=== PATIENT | female | born 1955 | race Caucasian/White ===

== ENCOUNTER 2021-11-13 08:53 | Inpatient (IN) | payer OTHER, MEDICARE, SELFPAY ==
[2021-11-13] VITALS (23 sets, daily range): BP systolic 79–195; BP diastolic 51–89; PULSE 63–97; RESP 11–30; TEMP 36.3–37.1; O2SAT 93–100; BMI 25.0
--- NOTE | 2021-11-13 | PATH_ITS ---
[facility] Accession Number: [id number] . 01 Material submitted: . small bowel - SMALL BOWEL . 01 Diagnosis: Small Bowel, Segmental Resection: Small bowel with acute ischemia-type changes including mucosal hemorrhage. Ischemia changes extend to one unoriented margin. Negative for granulomas, dysplasia, and malignancy. [facility] 11/15/2021 1127 Local . 01 Comment: The surgical impression of intussusception is noted. No lesions are identified on gross examination. . 01 Electronically signed: . Mary English MD, Pathologist NPI- [id number] . 01 Gross description: . Received in formalin and labeled with the patient's name and small bowel and consists of an unoriented, previously opened fragment of small bowel measuring 58.8 cm in length and 5.7 cm in circumference. The serosa is maddox, smooth, and unremarkable with mesentery extending up to 5.3 cm. A continuous segment of mucosa is red-brown, hemorrhagic, and edematous and extends from adjacent to one surgical margin and continues for approximately 27.3 cm. The remaining mucosa is maddox, velvety, folded, and mildly hemorrhagic. No lesions are identified. The margin adjacent to the hemorrhagic segment is inked blue, while the distant margin is inked black. A pink-maddox lymph node candidate is identified measuring 0.6 cm in greatest dimension. . Leather Craftsman sections are submitted as follows: A1: Leather Craftsman perpendicular segment of blue margin. A2: Remaining blue margin en face. A3: Black margin en face. A4: Leather Craftsman radial margin en face. A5-A8: Leather Craftsman full thickness sections. A9: Single lymph node candidate intact. A10-A11: Leather Craftsman adipose with possible lymph nodes. ([id number]) /[facility] 11/14/2021 1732 Local . 01 Pathologist provided ICD-10: K56.1 . 01 CPT . 685193 Specimen Comment: A courtesy copy of this report has been sent to [phone] Performed at: [address] [facility] [address], [place], [place] [id number] MD Bentley Viveros MD Phone: [phone]
--- NOTE | 2021-11-13 08:57 | DI.RAD.S_ITS ---
PROCEDURE: XR ACUTE ABDOMEN SERIES INDICATIONS: diarrhea, + n, epigastric pain TECHNIQUE: One view chest and two views of the abdomen were acquired. COMPARISON: None. FINDINGS: Surgical changes and devices: Breast implant. Chest: Lungs are clear. Prominent lung volumes. Heart size is normal. No pleural effusions. No pneumoperitoneum. Abdomen: Rounded calcification in the right upper quadrant. Bowel gas pattern is normal. No suspicious calcifications. Visualized solid organ contours appear normal. Bones: No suspicious bony lesions. IMPRESSION: No acute cardiopulmonary abnormality. Nonobstructive bowel gas pattern. Rounded calcification in the right upper quadrant. This could represent a gallstone or kidney stone. Dictated by: Alex Ramirez M.D. on 11/13/2021 at 10:32 Approved by: Alex Ramirez M.D. on 11/13/2021 at 10:33
--- NOTE | 2021-11-13 09:03 | ED_ITS ---
HPI - Abdominal Pain General Chief Complaint: Abdominal Pain Stated Complaint: Abdominal Pain Time Seen by Provider: 11/13/21 08:57 Source: patient Mode of arrival: EMS Limitations: no limitations History of Present Illness HPI narrative: This is an 65-year-old female with history of hypertension and dyslipidemia who presents with epigastric pain which started overnight, nausea 1 episode of vomiting and 1 episode of diarrhea overnight. Patient describes herself as feeling hot. She denies any chills. No objective fevers. She denies chest pain or pressure. She feels a little short of breath. Patient states pain does radiate towards her back. She denies radiation elsewhere. Patient denies any dysuria, urgency or frequency, no vaginal bleeding or discharge. No black or bloody stools with her 1 episode of diarrhea. Patient has not had similar symptoms in the past. She denies any prior surgeries. No known drug allergies. No tobacco, alcohol or illicit. She lives at with her . She states her primary care physician is Joan alexandre it has increased in young under the EMR but patient states it is Joan alexandre. Related Data Home Medications Medication Instructions Recorded Confirmed alprazolam 0.5 mg tablet 0.5 mg PO DAILY PRN 11/13/21 11/13/21 atorvastatin 20 mg tablet 20 mg PO DAILY 11/13/21 11/13/21 escitalopram oxalate 10 mg tablet 10 mg PO DAILY 11/13/21 11/13/21 triamterene 37.5 1 tab PO DAILY 11/13/21 11/13/21 mg-hydrochlorothiazide 25 mg tablet Allergies Allergy/AdvReac Type Severity Reaction Status Date / Time No Known Drug Allergies Allergy Verified 11/13/21 09:21 Review of Systems Review of Systems ROS Unobtainable: All systems reviewed & are unremarkable except as noted in HPI and below Patient History Social History household members: spouse Smoking Status: Never smoker alcohol intake: current Exam Narrative Exam Narrative: GENERAL: Alert and oriented x three, female in moderate distress HEENT: Head normocephalic, atraumatic, EOMI, pupils reactive, face symmetric, moist mucous membranes NECK: Supple, full range of motion CARDIOVASCULAR: Regular rate and rhythm without murmurs, rubs or gallops. RESPIRATORY: Breath sounds equal bilaterally, no wheezes rales or rhonchi. ABDOMEN: Soft, epigastric tenderness. Normoactive bowel sounds all 4 quadrants. No guarding or rebound, rigidity, no mass, no pulsatile mass or bruit. : No CVA tenderness EXTREMITIES: Normal range of motion, no clubbing or edema. Neurovascularly intact NEUROLOGICAL: Cranial nerves II through XII grossly intact. Moving all extremities SKIN: Warm, dry, no petechiae, no rashes or lesions. Initial Vital Signs Initial Vital Signs: Vital Signs Pulse Rate 63 11/13/21 09:02 Respiratory Rate 28 H 11/13/21 09:02 Pulse Oximetry 100 11/13/21 09:02 Course Orders Ordered: ED Orders 11/13/21 08:57 XR acute abdomen series Stat 11/13/21 08:58 EKG-12 Lead Stat 11/13/21 09:11 Complete Blood Count AUTO DIFF Stat Comprehensive Metabolic Panel Stat Lipase Stat Troponin & CK Cardiac Panel Stat 11/13/21 09:26 Urine Microscopic Stat 11/13/21 10:30 Covid-19 + FLU A/B + RSV - PCR Stat 11/13/21 10:39 Urine Culture Stat Urine Microscopic Stat 11/13/21 10:43 CT abdomen pelvis w con Stat Acetaminophen (Acetaminophen 325 Mg Tablet) 650 mg PO Q6HR CHELSY Alprazolam (Alprazolam 0.5 Mg Tablet) 0.5 mg PO DAILY PRN PRN Reason: Anxiety Hydromorphone HCl (Hydromorphone 0.5 Mg Inj) 1 mg IV Q2H PRN PRN Reason: Breakthrough pain only (8-10) Lactated Ringer's (Lactated Ringers) 1,000 mls @ 100 mls/hr IV CONT CHELSY Last Admin: 11/13/21 14:11 Dose: 100 mls/hr Documented by: Infusion: 11/13/21 14:11 Dose: 100 mls/hr Documented by: Admin: 11/13/21 13:27 Dose: 100 mls/hr Documented by: MIKI Ketorolac Tromethamine (Ketorolac 30 Mg/Ml Vial) 30 mg IV Q6H CHELSY Stop: 11/16/21 13:14 Last Admin: 11/13/21 13:27 Dose: 30 mg Documented by: MIKI Naloxone HCl (Naloxone 0.4 Mg/Ml Vial) 0.2 mg IV Q2MIN PRN PRN Reason: Opiate Reversal Ondansetron HCl (Ondansetron 4 Mg/2 Ml Inj) 4 mg IV Q8HR PRN PRN Reason: Nausea And Vomiting Triamterene/Hydrochlorothiazide (Triamterene/Hctz 37.5/25 Capsule) 1 cap PO DAILY CHELSY Discontinued Medications Sodium Chloride (Normal Saline 0.9%) 1,000 mls @ 1,000 mls/hr IV BOLUS ONE Stop: 11/13/21 09:56 Last Infusion: 11/13/21 12:39 Dose: 0 mls/hr Documented by: Admin: 11/13/21 09:23 Dose: 1,000 mls/hr Documented by: DORIE Lorazepam (Lorazepam 2 Mg/Ml Inj) 0.5 mg IV NOW ONE Stop: 11/13/21 10:44 Last Admin: 11/13/21 11:41 Dose: 0.5 mg Documented by: DORIE Morphine Sulfate (Morphine 4 Mg/Ml Inj) 4 mg IV NOW ONE Stop: 11/13/21 09:03 Last Admin: 11/13/21 09:24 Dose: 4 mg Documented by: DORIE Morphine Sulfate (Morphine 4 Mg/Ml Inj) 4 mg IV NOW ONE Stop: 11/13/21 12:37 Last Admin: 11/13/21 12:46 Dose: 4 mg Documented by: DORIE Ondansetron HCl (Ondansetron 4 Mg/2 Ml Inj) 4 mg IV NOW ONE Stop: 11/13/21 09:09 Last Admin: 11/13/21 09:24 Dose: 4 mg Documented by: DORIE Reevaluation(s) Reevaluation #1: Patient feeling more comfortable after pain medications. She still does have some pain. Reviewed her findings and waiting for call back from general surgery but likely admission to the hospital possible OR. Consultations Consultation #1: Dr. Walden, general surgery accepts for and admission. Vital Signs Vital signs: Vital Signs - 8 hr 11/13/21 09:02 11/13/21 09:13 11/13/21 09:30 Temperature 98 F Pulse Rate 63 84 65 Respiratory Rate 28 H 17 23 Blood Pressure 195/85 H Pulse Oximetry 100 100 100 11/13/21 10:31 11/13/21 10:33 11/13/21 11:44 Temperature Pulse Rate 74 90 78 Respiratory Rate 30 H 21 15 Blood Pressure 170/89 H Pulse Oximetry 100 11/13/21 11:46 11/13/21 12:00 Temperature Pulse Rate 68 79 Respiratory Rate 14 18 Blood Pressure 162/74 H 146/68 H Pulse Oximetry 100 99 MDM - Abdominal Pain Lab Data Result diagrams: 11/13/21 09:11 11/13/21 09:11 Labs: Lab Results 11/13/21 11/13/21 11/13/21 Range/Units 09:11 09:11 09:11 WBC 8.3 (4.5-11.0) X10^3/uL RBC 4.20 (4.0-5.2) X10^6/uL Hgb 12.8 (12.0-16.0) g/dL Hct 38.0 (36-46) % MCV 90.4 (80-100) fL MCH 30.4 (26-34) PG MCHC 33.6 (30-36) % RDW 13.6 (11.6-14.8) % Plt Count 248 (150-400) X10^3/uL Neut % (Auto) 65.3 (50-75) % Lymph % (Auto) 27.8 (25-40) % [place] % (Auto) 3.8 (3-14) % Eos % (Auto) 2.5 (2-4) % Baso % (Auto) 0.6 (0-2) % Neut # (Auto) 5400 (4157-0072) /uL Lymph # (Auto) 2300 (5029-7586) /uL [place] # (Auto) 300 (0-900) /uL Eos # (Auto) 200 (0-450) /uL Baso # (Auto) 0 (0-100) /uL Sodium 138 (137-145) mmol/L Potassium 3.4 (3.4-5.1) mmol/L Chloride 106 (98-107) mmol/L Carbon Dioxide 24 (22-32) mmol/L BUN 15 (7-17) mg/dL Creatinine 0.64 (0.52-1.04) mg/dL Estimated GFR > 60 (>60) mL/min BUN/Creatinine Ratio 23.4 H (6-22) Glucose 193 H (80-110) mg/dL Calcium 9.2 (8.4-10.2) mg/dL Total Bilirubin 0.7 (0.2-1.3) mg/dL AST 26 (14-36) IU/L ALT 17 (<35) IU/L Alkaline Phosphatase 61 (38-126) U/L Total Creatine Kinase 75 (30-135) U/L CK-MB (CK-2) TNP CK-MB (CK-2) Rel Index TNP Troponin I < 0.012 (0.01-0.034) ng/mL Total Protein 6.9 (6.3-8.2) g/dL Albumin 4.4 (3.5-5.0) g/dL Globulin 2.5 (1.7-4.1) g/dL Albumin/Globulin Ratio 1.8 (1.0-2.8) Lipase 63 (23-300) U/L Urine RBC (0-5/HPF) Urine WBC (0-5/HPF) Ur Squamous Epith Cells (0-5/HPF) Urine Bacteria (None) Ur Culture Indicated? Micro UA Comment SARS-CoV-2 (PCR) (Negative) Influenza A (RT-PCR) (NEGATIVE) Influenza B (RT-PCR) (NEGATIVE) RSV (PCR) (Negative) 11/13/21 11/13/21 11/13/21 Range/Units 09:26 10:30 10:39 WBC (4.5-11.0) X10^3/uL RBC (4.0-5.2) X10^6/uL Hgb (12.0-16.0) g/dL Hct (36-46) % MCV (80-100) fL MCH (26-34) PG MCHC (30-36) % RDW (11.6-14.8) % Plt Count (150-400) X10^3/uL Neut % (Auto) (50-75) % Lymph % (Auto) (25-40) % [place] % (Auto) (3-14) % Eos % (Auto) (2-4) % Baso % (Auto) (0-2) % Neut # (Auto) (5854-6893) /uL Lymph # (Auto) (4969-2037) /uL [place] # (Auto) (0-900) /uL Eos # (Auto) (0-450) /uL Baso # (Auto) (0-100) /uL Sodium (137-145) mmol/L Potassium (3.4-5.1) mmol/L Chloride (98-107) mmol/L Carbon Dioxide (22-32) mmol/L BUN (7-17) mg/dL Creatinine (0.52-1.04) mg/dL Estimated GFR (>60) mL/min BUN/Creatinine Ratio (6-22) Glucose (80-110) mg/dL Calcium (8.4-10.2) mg/dL Total Bilirubin (0.2-1.3) mg/dL AST (14-36) IU/L ALT (<35) IU/L Alkaline Phosphatase (38-126) U/L Total Creatine Kinase (30-135) U/L CK-MB (CK-2) CK-MB (CK-2) Rel Index Troponin I (0.01-0.034) ng/mL Total Protein (6.3-8.2) g/dL Albumin (3.5-5.0) g/dL Globulin (1.7-4.1) g/dL Albumin/Globulin Ratio (1.0-2.8) Lipase (23-300) U/L Urine RBC None seen None seen (0-5/HPF) Urine WBC None seen 0-1/hpf (0-5/HPF) Ur Squamous Epith Cells None seen (0-5/HPF) Urine Bacteria None seen None seen (None) Ur Culture Indicated? Cult not indicated Cult not indicated Micro UA Comment Microscopic normal SARS-CoV-2 (PCR) Negative (Negative) Influenza A (RT-PCR) Flu a negative (NEGATIVE) Influenza B (RT-PCR) Flu b negative (NEGATIVE) RSV (PCR) Negative (Negative) Point of care testing: Urine Dip Bedside Urine Glucose 250 mg/dl Bedside Urine Bilirubin - Negative Bedside Urine Ketone +/- 5 Urine Specific [place] 1.015 Bedside Urine Occult Blood - Negative Bedside Urine pH 7.5 Bedside Urine Protein - Negative Bedside Urine Urobilinogen - Negative Bedside Urine Nitrite - Negative Bedside Urine Leukocytes + 70 Esterase Imaging Data Abdominal x-ray: Radiologist's Impression: [address] [address] XRay Report Signed Patient: Di Neumann MR#: [id number] : 1955 Acct:[id number] Age/Sex: 65 / F Date of Service: 11/13/21 Loc: ED Accession Number: [id number] ?? Procedure: XR acute abdomen series Ordering Provider: Samia De Anda D.O. PROCEDURE:? XR ACUTE ABDOMEN SERIES ? INDICATIONS:? diarrhea, + n, epigastric pain ? TECHNIQUE:? One view chest and two views of the abdomen were acquired.? ? COMPARISON:? None. ? FINDINGS:? ? Surgical changes and devices:? Breast implant.? ? Chest:? Lungs are clear.? Prominent lung volumes.? Heart size is normal.? No pl eural effusions.? No pneumoperitoneum.? ? Abdomen:? Rounded calcification in the right upper quadrant.? Bowel gas pattern is normal.? No suspicious calcifications.? Visualized solid organ contours appear normal.? ? Bones:? No suspicious bony lesions.? ? IMPRESSION:? No acute cardiopulmonary abnormality. Nonobstructive bowel gas pattern. ? Rounded calcification in the right upper quadrant.? This could represent a gallstone or kidney stone.? ? Dictated by: Alex Ramirez M.D. on 11/13/2021 at 10:32 ? ? Approved by: Alex Ramirez M.D. on 11/13/2021 at 10:33?? ECG Data Attestation: I personally reviewed and interpreted this ECG as follows: Prior ECG tracings: not available for review Interpretation: Sinus rhythm first-degree AV block. Rate of 60 1p are 210, QRS 100 QTC 479. Be fore 5 6 appears slightly depressed. No elevations noted. No priors for comparison. MDM Narrative Medical decision making narrative: This is a 65-year-old female comes emergency department with acute onset abdominal pain, vomiting and 1 episode of diarrhea without any blood. Patient's labs show no acute cause, EKG shows possible depression, troponin is negative and patient's pain seemed to be reproducible on exam. Acute abdominal series shows no acute change, CT abdomen/pelvis was ordered as patient has persistent vomiting. And patient has in deception on imaging. Case was discussed with general surgery who accepts for admission and possible OR today. Patient is NPO, she has had pain in antinausea medication which has been helpful but not completely resolve her symptoms. Discharge Plan Departure Patient Disposition: Admitted As Inpatient Clinical Impression: Intussusception Admit Date/Time: 11/13/21 12:18 Admit Provider: Oleg Walden
[2021-11-13] MEDS: SODIUM CHLORIDE 0.9% 1,000 ML 1000 ML IV (09:23)
[2021-11-13] MEDS: MORPHINE 4 MG/ML INJ IV ×2 (09:24→12:46)
[2021-11-13] MEDS: ONDANSETRON 4 MG/2 ML INJ IV (09:24)
[2021-11-13 09:28] LABS: Add Manual Diff / Slide Review NO; Basophils Absolute Auto 0 /uL (0-100); Basophils Percent Auto 0.6 % (0-2); Eosinophils Absolute Auto 200 /uL (0-450); Eosinophils Percent Auto 2.5 % (2-4); Hemoglobin 12.8 g/dL (12.0-16.0); Lymphocytes Absolute Auto 2300 /uL (1100-4500); Lymphocytes Percent Auto 27.8 % (25-40); Mean Corpuscular HGB Conc 33.6 % (30-36); Mean Corpuscular Hemoglobin 30.4 PG (26-34); Mean Corpuscular Volume 90.4 fL (80-100); Monocytes Absolute Auto 300 /uL (0-900); Monocytes Percent Auto 3.8 % (3-14); Neutrophils Absolute Auto 5400 /uL (1500-7000); Neutrophils Percent Auto 65.3 % (50-75); Platelet Count 248 X10^3/uL (150-400); Red Cell Distribution Width 13.6 % (11.6-14.8); White Blood Cell Count 8.3 X10^3/uL (4.5-11.0)
[2021-11-13 09:40] LABS: Creatine Kinase 75 U/L (30-135)
[2021-11-13 09:52] LABS: Alanine Aminotransferase 17 IU/L (<35); Albumin 4.4 g/dL (3.5-5.0); Albumin Globulin Ratio 1.8 (1.0-2.8); Alkaline Phosphatase 61 U/L (38-126); Aspartate Aminotransferase 26 IU/L (14-36); BUN Creatinine Ratio 23.4 (6-22); Bilirubin Total 0.7 mg/dL (0.2-1.3); Blood Urea Nitrogen 15 mg/dL (7-17); Calcium 9.2 mg/dL (8.4-10.2); Carbon Dioxide 24 mmol/L (22-32); Chloride 106 mmol/L (98-107); Estimated Glomerular Filt Rate > 60 mL/min (>60); Globulin 2.5 g/dL (1.7-4.1); Glucose 193 mg/dL (80-110); HEMOLYSIS < 15 (0-50); Lipase 63 U/L (23-300); Potassium 3.4 mmol/L (3.4-5.1); Sodium 138 mmol/L (137-145); Total Protein 6.9 g/dL (6.3-8.2)
[2021-11-13 09:53] LABS: Troponin I < 0.012 ng/mL (0.01-0.034)
[2021-11-13 09:55] LABS: Bacteria Urine None Seen; Culture Indicated Urine Cult Not Indicated; RBC Urine None Seen (0-5/HPF); Urine Comments Microscopic Normal; WBC Urine None Seen (0-5/HPF)
--- NOTE | 2021-11-13 10:43 | DI.CT.S_ITS ---
PROCEDURE: CT ABDOMEN PELVIS W CON INDICATIONS: abd pain, vomiting TECHNIQUE: After the administration of intravenous contrast, axial sections acquired from the lung bases to the pubic symphysis. Coronal and sagittal reformats were performed. For radiation dose reduction, the following was used: automated exposure control, adjustment of mA and/or kV according to patient size. COMPARISON: None. FINDINGS: Image quality: Excellent. Lung bases: Unremarkable. Heart: Mild cardiomegaly. Bilateral mammoplasties are present, the left side is peripherally calcified. ABDOMEN: Liver: Unremarkable. Gallbladder: Unremarkable. Biliary ducts: Unremarkable. Pancreas: Unremarkable. Spleen: Unremarkable. Adrenal Glands: Unremarkable. Kidneys and Ureters: Unremarkable. Stomach and Bowel: There is a markedly abnormal segment of bowel in the mid abdomen which most likely represents distal jejunal or proximal ileal intussusception, possibly secondary to a polypoid lipoma. There is associated bowel wall thickening present. Peritoneum: No abnormal intraperitoneal fluid. No free air. Ventral Wall: No hernias. Abdominal Nodes: No retroperitoneal or mesenteric adenopathy by size criteria. Vessels: Aorta and inferior vena cava are normal in size. PELVIS: Pelvic Organs: Unremarkable. Bladder: Unremarkable. Pelvic Nodes: No enlarged lymph nodes. Miscellaneous: No hernias are seen. Bones: Lumbar degenerative change. No lytic or blastic bony lesions. No compression fractures. IMPRESSION: 1. Markedly abnormal appearing segment of bowel, likely representing a distal jejunal or proximal ileal intussusception, possibly secondary to a polypoid lipoma. There is significant associated bowel wall thickening. 2. Mild cardiomegaly. Comment: Findings were discussed with Dr. De Anda on 11/13/2021 at 1108 hours Dictated by: Mingo Liriano M.D. on 11/13/2021 at 11:03 Approved by: Mingo Liriano M.D. on 11/13/2021 at 11:10
[2021-11-13 11:31] LABS: Influenza A - CEPHEID Flu A NEGATIVE (NEGATIVE); Influenza B - CEPHEID Flu B NEGATIVE (NEGATIVE); Respiratory Syncytial Virus Negative (Negative)
[2021-11-13 11:34] LABS: COVID-19 CEPHEID PCR (VTM/NP) Negative (Negative)
[2021-11-13] MEDS: LORazepam 2 MG/ML INJ 0.5 MG IV (11:41)
[2021-11-13 11:50] LABS: Bacteria Urine None Seen; Culture Indicated Urine Cult Not Indicated; RBC Urine None Seen (0-5/HPF); Squamous Epithelial Cell Urine None Seen (0-5/HPF); WBC Urine 0-1/HPF (0-5/HPF)
--- NOTE | 2021-11-13 12:40 | P.HP_ITS ---
History of Present Illness History of Present Illness Date Patient Seen: 11/13/21 Time Patient Seen: 12:40 Chief complaint: Abdominal Pain Narrative: 65-year-old healthy woman no prior abdominal surgery presents with small-bowel intussusception. Developed severe abdominal pain today associated with nausea bloating radiation to the back. Admission afebrile hypertensive WBC 8. CT abdomen pelvis demonstrates a mid bowel intussusception with bowel wall edema no free air. Patient History Family & Social History Safety & Behavioral: Feels Safe in Current Yes Environment Been Physically Hurt or No Threatened By a Person Tobacco & Substance use: Smoking Status Never smoker alcohol intake frequency other Substance Use Type does not use Meds Home Medications and Allergies Home Medications Medication Instructions Recorded Confirmed Type ALPRAZOLAM 0.5 mg PO PRN #0 07/14/10 History Simvastatin (Zocor) 10 mg PO HS #0 07/14/10 History TRIAMTER/HCTZ 37.5/25 - 1 cap PO QDAY #0 07/14/10 History (Dyazide 37.5-25 Capsule) ASPIRIN (Aspirin Low Dose) #0 07/18/10 History MULTIVITAMIN (Multivitamin 1 cap PO EVERY DAY #0 07/18/10 History -) VITAMIN C - #0 07/18/10 History (VITAMIN C) [CALCIUM] #0 07/18/10 History [MILK THISTLE] #0 07/18/10 History Allergies Allergy/AdvReac Type Severity Reaction Status Date / Time No Known Drug Allergies Allergy Verified 11/13/21 09:21 Exam Vital Signs (past 8 hours): - 11/13/21 09:02 11/13/21 09:13 11/13/21 09:30 Temperature 98 F Pulse Rate 63 84 65 Respiratory Rate 28 H 17 23 Blood Pressure 195/85 H Pulse Oximetry 100 100 100 11/13/21 10:31 11/13/21 10:33 11/13/21 11:44 Temperature Pulse Rate 74 90 78 Respiratory Rate 30 H 21 15 Blood Pressure 170/89 H Pulse Oximetry 100 Oxygen Delivery Method Room Air Narrative Exam Narrative: GENERAL: Adult woman appears and comfort HEENT: No scleral icterus CV: Regular rate, no peripheral edema LUNGS: No increased work of breathing. Patient speaks in full sentences without oxygen support. ABDOMEN: Periumbilical tenderness. No peritonitis SKIN: Warm and dry Objective Labs Result Diagrams: 11/13/21 09:11 06/06/22 09:11 Labs: Laboratory Results - last 24 hr 11/13/21 11/13/21 11/13/21 09:11 09:11 09:11 WBC 8.3 RBC 4.20 Hgb 12.8 Hct 38.0 MCV 90.4 MCH 30.4 MCHC 33.6 RDW 13.6 Plt Count 248 Neut % (Auto) 65.3 Lymph % (Auto) 27.8 [place] % (Auto) 3.8 Eos % (Auto) 2.5 Baso % (Auto) 0.6 Neut # (Auto) 5400 Lymph # (Auto) 2300 [place] # (Auto) 300 Eos # (Auto) 200 Baso # (Auto) 0 Sodium 138 Potassium 3.4 Chloride 106 Carbon Dioxide 24 BUN 15 Creatinine 0.64 Estimated GFR > 60 BUN/Creatinine Ratio 23.4 H Glucose 193 H Calcium 9.2 Total Bilirubin 0.7 AST 26 ALT 17 Alkaline Phosphatase 61 Total Creatine Kinase 75 CK-MB (CK-2) TNP CK-MB (CK-2) Rel Index TNP Troponin I < 0.012 Total Protein 6.9 Albumin 4.4 Globulin 2.5 Albumin/Globulin Ratio 1.8 Lipase 63 Urine RBC Urine WBC Ur Squamous Epith Cells Urine Bacteria Ur Culture Indicated? Micro UA Comment SARS-CoV-2 (PCR) Influenza A (RT-PCR) Influenza B (RT-PCR) RSV (PCR) 11/13/21 11/13/21 11/13/21 09:26 10:30 10:39 WBC RBC Hgb Hct MCV MCH MCHC RDW Plt Count Neut % (Auto) Lymph % (Auto) [place] % (Auto) Eos % (Auto) Baso % (Auto) Neut # (Auto) Lymph # (Auto) [place] # (Auto) Eos # (Auto) Baso # (Auto) Sodium Potassium Chloride Carbon Dioxide BUN Creatinine Estimated GFR BUN/Creatinine Ratio Glucose Calcium Total Bilirubin AST ALT Alkaline Phosphatase Total Creatine Kinase CK-MB (CK-2) CK-MB (CK-2) Rel Index Troponin I Total Protein Albumin Globulin Albumin/Globulin Ratio Lipase Urine RBC None seen None seen Urine WBC None seen 0-1/hpf Ur Squamous Epith Cells None seen Urine Bacteria None seen None seen Ur Culture Indicated? Cult not indicated Cult not indicated Micro UA Comment Microscopic normal SARS-CoV-2 (PCR) Negative Influenza A (RT-PCR) Flu a negative Influenza B (RT-PCR) Flu b negative RSV (PCR) Negative Assessment & Plan Assessment and plan (1) Intussusception: Status: Acute Assessment & Plan narrative: 65-year-old woman healthy no previous abdominal surgery here with a small bowel intussusception. Exploratory laparotomy and small bowel resection I reviewed her CT abdomen pelvis demonstrates a mid small bowel bowel intussusception with bowel wall edema and some free fluid, no free air. She is tender on exam no peritonitis. We discussed management options including observation and surgery. My recommendation is for exploratory laparotomy small- bowel resection because of the potential for intestinal compromise and exclusion of a malignant lead point. Technical overview of the operation was discussed. Operative risks including bleeding, infection, anastomotic leak, enterotomy, damage to surrounding structures, anesthetic complication and were discussed. Her questions have been answered and she is in agreement with this plan. Time Spent With Patient Critical Care time: I spent a total of [] minutes of critical care time on this patient's care today ; this time is exclusive of procedural time.
[2021-11-13] MEDS: KETOROLAC 30 MG/ML VIAL IV ×2 (13:27→19:53)
[2021-11-13] MEDS: LACTATED RINGERS 1,000 ML 100 ML IV ×4 (13:27→17:41)
--- NOTE | 2021-11-13 14:08 | PC.NURSE ---
PT ADMITTED FROM ED WITH INTRACTABLE N/V AND ABD PAIN- PLAN IS REMAIN NPO AND GO TO THE OR LATER THIS DATE- VSS AFEBRILE ALLOWED TO VOID IN BR WITH SBA, LUNGS DIM BUT CLEAR NO EDEMA- LR @ 100CC/H AND TORADOL IV GIVEN- LEFT FOR FOR @ 1350
[2021-11-13] MEDS: PIPERACILLIN/TAZO 3.375 GM in SODIUM CHLORIDE 0.9% 100 ML IV (16:13)
--- NOTE | 2021-11-13 16:20 | SUR.OPER ---
Supine on padded OR bed, head on pillow, arms secured on padded arm boards at <90 degrees abduction, legs uncrossed, safety belt at thigh, gel pad under heels.
--- NOTE | 2021-11-13 16:21 | SUR.OPER ---
Patient reports she has multiple lesions on her body that were diagnosed as skin cancer. She reports she is having them removed soon. She states there are 2 lesions on her chest, 1 lesion on her left shoulder, and 1 lesion on her left inner thigh, which was visualized. The other 3 lesions were not visualized.
[2021-11-13] MEDS: BUPIVACAINE 0.25% (PF) VIAL 30 ML INJ (17:06)
--- NOTE | 2021-11-13 17:31 | P.OP_ITS ---
Operative Date/Time/Diagnoses Date of procedure: 11/13/21 Time of procedure: 17:31 Pre-op diagnosis: Intussusception Post-op diagnosis: same Procedure & Clinicians Procedure: Exploratory laparotomy small-bowel resection Same procedure as scheduled: Yes Indications: 65-year-old woman who presented with abdominal pain found to have a small bowel intussusception on CT Surgeon: Oleg Walden Anesthesia Type: General Operative Notes Findings: Intussusception necrotic small bowel. Specimen(s): other (Small-bowel) Estimated Blood Loss (mL): 50 Procedure in detail: Patient was brought to the operating room placed supine on the table. Bilateral lower extremity compression devices were applied. General anesthesia was induc ed she was intubated with endotracheal tube. Roque catheter was sterilely placed. She was prepped and draped in sterile fashion. A time-out was performed. A laparotomy was made the fascia was grasped elevated sharply incised. The abdomen was entered atraumatically. The small bowel was eviscerated. In the mid small bowel there was a segment of intussusception with ischemic necrosis. The intussusception was resected. A window within the mesentery on either side of the intussusception within the viable small bowel was made the bowel was divided with the THERON stapler blue load 75 mm. The specimen was then resected using the LigaSure to divide the mesentery. The specimen was passed off the field as small bowel. It was opened on the back table there was a soft 2 cm mass within the bowel suggestive of lipoma. A [id number] functional and end anastomosis was formed. An enterotomy in both limbs was made a 3rd stapler load was used to create a common channel. The common channel was then inspected it was found to be hemostatic and widely patent. The common opening was then closed with a running 3-0 PDS suture. Staple the suture line was then imbricated with silk suture. The anastomosis was tested content moved across it freely there was no evidence of leak. The mesenteric defect was then closed with a running Vicryl suture. The abdomen was irrigated with sterile saline. Fascia was then closed in running fashion using 1. PDS suture followed by Vicryl and Monocryl for the skin. Dermabond was applied and a sterile dressing. Patient emerged from anesthesia was transferred to recovery in stable condition. Complications: none Post-operative Condition: stable Disposition: Acute Care
--- NOTE | 2021-11-13 17:56 | SUR.PHASEI ---
2100 ml LR infused in surgical services. Report called to Adelita Pierce RN
--- NOTE | 2021-11-13 17:57 | SUR.PHASEI ---
Roque emptied prior to leaving the OR, small amount pale yellow urine in the tubing. Pt denies pain, tolerating PO well.
--- NOTE | 2021-11-13 18:32 | SUR.PHASEI ---
1802 late entry to room 225, bed down and locked, call light within reach, SCDs on. Spouse in the room, patient awake and talking, stating that she is having no pain. No questions from pt/spouse or staff.
--- NOTE | 2021-11-13 18:55 | PC.NURSE ---
pt denies pain post op bowel resection incision covered with small 3x3 aquacell and clean dry intact, LR INFUSING AT 100CC/H , FERRER PATENT AND TOLERATING CLEAR LIQUIDS WELL, SCD'S IN PLACE
[2021-11-13] MEDS: POTASSIUM CHLORIDE IN WATER 10 MEQ/100 ML PIGGYBACK 100 MEQ IV ×4 (20:45→23:52)
[2021-11-13] MEDS: HYDROMORPHONE 0.5 MG INJ 1 MG IV (21:48)
[2021-11-13] MEDS: ACETAMINOPHEN 325 MG TABLET 650 MG PO (23:52)
[2021-11-14] VITALS (11 sets, daily range): BP systolic 95–115; BP diastolic 53–79; PULSE 64–87; RESP 16–20; TEMP 36.6–37.4; O2SAT 94–97
[2021-11-14] MEDS: POTASSIUM CHLORIDE IN WATER 10 MEQ/100 ML PIGGYBACK 100 MEQ IV ×2 (00:45→01:45)
[2021-11-14] MEDS: ALPRAZolam 0.5 MG TABLET PO ×2 (01:06→21:04)
[2021-11-14] MEDS: KETOROLAC 30 MG/ML VIAL IV ×4 (01:07→21:03)
[2021-11-14] MEDS: LACTATED RINGERS 1,000 ML 100 ML IV (04:54)
[2021-11-14 05:13] LABS: Add Manual Diff / Slide Review NO; Basophils Absolute Auto 0 /uL (0-100); Basophils Percent Auto 0.3 % (0-2); Eosinophils Absolute Auto 0 /uL (0-450); Hematocrit 31.6 % (36-46); Hemoglobin 10.9 g/dL (12.0-16.0); Lymphocytes Absolute Auto 1100 /uL (1100-4500); Lymphocytes Percent Auto 9.8 % (25-40); Mean Corpuscular HGB Conc 34.6 % (30-36); Mean Corpuscular Hemoglobin 31.1 PG (26-34); Mean Corpuscular Volume 90.1 fL (80-100); Monocytes Absolute Auto 500 /uL (0-900); Monocytes Percent Auto 4.5 % (3-14); Neutrophils Absolute Auto 9400 /uL (1500-7000); Neutrophils Percent Auto 85.4 % (50-75); Platelet Count 214 X10^3/uL (150-400); Red Cell Distribution Width 13.7 % (11.6-14.8)
[2021-11-14] MEDS: ACETAMINOPHEN 325 MG TABLET 650 MG PO ×3 (05:15→17:46)
[2021-11-14 05:23] LABS: BUN Creatinine Ratio 17.5 (6-22); Blood Urea Nitrogen 11 mg/dL (7-17); Calcium 8.5 mg/dL (8.4-10.2); Carbon Dioxide 24 mmol/L (22-32); Chloride 103 mmol/L (98-107); Estimated Glomerular Filt Rate > 60 mL/min (>60); Glucose 138 mg/dL (80-110); HEMOLYSIS < 15 (0-50); Potassium 4.4 mmol/L (3.4-5.1); Sodium 135 mmol/L (137-145)
--- NOTE | 2021-11-14 09:14 | PM.PNPO.1 ---
Subjective Subjective Date Patient Seen: 11/14/21 Time Patient Seen: 09:14 Interval history: Incisional discomfort. No nausea vomiting. Urinating after catheter removal. Ambulatory. Exam Vital Signs (past 8 hours): - 11/14/21 02:00 11/14/21 05:00 11/14/21 05:52 Temperature 99.3 F Pulse Rate 87 Respiratory Rate 17 Blood Pressure 95/67 Pulse Oximetry 94 97 97 11/14/21 08:00 11/14/21 09:10 Temperature 98.2 F Pulse Rate 76 64 Respiratory Rate 18 16 Blood Pressure 105/63 Pulse Oximetry 97 96 Oxygen Delivery Method Room Air Oxygen Flow Rate 0 Narrative Exam Narrative: General adult woman alert oriented no acute distress Abdomen soft appropriately tender to palpation. Dressing clear dry intact Objective Labs Result Diagrams: 11/14/21 05:00 11/14/21 05:00 Labs: Laboratory Results - last 24 hr 11/13/21 11/13/21 11/13/21 09:11 09:11 09:11 WBC 8.3 RBC 4.20 Hgb 12.8 Hct 38.0 MCV 90.4 MCH 30.4 MCHC 33.6 RDW 13.6 Plt Count 248 Neut % (Auto) 65.3 Lymph % (Auto) 27.8 [place] % (Auto) 3.8 Eos % (Auto) 2.5 Baso % (Auto) 0.6 Neut # (Auto) 5400 Lymph # (Auto) 2300 [place] # (Auto) 300 Eos # (Auto) 200 Baso # (Auto) 0 Sodium 138 Potassium 3.4 Chloride 106 Carbon Dioxide 24 BUN 15 Creatinine 0.64 Estimated GFR > 60 BUN/Creatinine Ratio 23.4 H Glucose 193 H Calcium 9.2 Total Bilirubin 0.7 AST 26 ALT 17 Alkaline Phosphatase 61 Total Creatine Kinase 75 CK-MB (CK-2) TNP CK-MB (CK-2) Rel Index TNP Troponin I < 0.012 Total Protein 6.9 Albumin 4.4 Globulin 2.5 Albumin/Globulin Ratio 1.8 Lipase 63 Urine RBC Urine WBC Ur Squamous Epith Cells Urine Bacteria Ur Culture Indicated? Micro UA Comment SARS-CoV-2 (PCR) Influenza A (RT-PCR) Influenza B (RT-PCR) RSV (PCR) 11/13/21 11/13/21 11/13/21 09:26 10:30 10:39 WBC RBC Hgb Hct MCV MCH MCHC RDW Plt Count Neut % (Auto) Lymph % (Auto) [place] % (Auto) Eos % (Auto) Baso % (Auto) Neut # (Auto) Lymph # (Auto) [place] # (Auto) Eos # (Auto) Baso # (Auto) Sodium Potassium Chloride Carbon Dioxide BUN Creatinine Estimated GFR BUN/Creatinine Ratio Glucose Calcium Total Bilirubin AST ALT Alkaline Phosphatase Total Creatine Kinase CK-MB (CK-2) CK-MB (CK-2) Rel Index Troponin I Total Protein Albumin Globulin Albumin/Globulin Ratio Lipase Urine RBC None seen None seen Urine WBC None seen 0-1/hpf Ur Squamous Epith Cells None seen Urine Bacteria None seen None seen Ur Culture Indicated? Cult not indicated Cult not indicated Micro UA Comment Microscopic normal SARS-CoV-2 (PCR) Negative Influenza A (RT-PCR) Flu a negative Influenza B (RT-PCR) Flu b negative RSV (PCR) Negative 11/14/21 11/14/21 05:00 05:00 WBC 11.0 RBC 3.50 L Hgb 10.9 L Hct 31.6 L MCV 90.1 MCH 31.1 MCHC 34.6 RDW 13.7 Plt Count 214 Neut % (Auto) 85.4 H D Lymph % (Auto) 9.8 L [place] % (Auto) 4.5 Eos % (Auto) 0.0 L Baso % (Auto) 0.3 Neut # (Auto) 9400 H Lymph # (Auto) 1100 [place] # (Auto) 500 Eos # (Auto) 0 Baso # (Auto) 0 Sodium 135 L Potassium 4.4 Chloride 103 Carbon Dioxide 24 BUN 11 Creatinine 0.63 Estimated GFR > 60 BUN/Creatinine Ratio 17.5 Glucose 138 H Calcium 8.5 Total Bilirubin AST ALT Alkaline Phosphatase Total Creatine Kinase CK-MB (CK-2) CK-MB (CK-2) Rel Index Troponin I Total Protein Albumin Globulin Albumin/Globulin Ratio Lipase Urine RBC Urine WBC Ur Squamous Epith Cells Urine Bacteria Ur Culture Indicated? Micro UA Comment SARS-CoV-2 (PCR) Influenza A (RT-PCR) Influenza B (RT-PCR) RSV (PCR) PFSH Social History household members: spouse Smoking Status: Never smoker alcohol intake: current Assessment & Plan Post-op Postoperative Procedures: Procedures Operation Date: 11/13/21 14:00 Actual Procedure Side Surgeon p Exploratory Laparotomy, small bowel resection Oleg Walden MD Postoperative plan narrative: 65-year-old woman postoperative day 1 status post small bowel resection for intussusception with ischemic necrosis of small bowel. Doing well progressing appropriately. -DC IV fluids -full liquid diet -SCDs and prophylactic Lovenox Quality VTE Deep Vein Thrombosis/Pulmonary Embolism Present on Admission: No
[2021-11-14] MEDS: TRIAMTERENE/HCTZ 37.5/25 CAPSULE 1 CAP PO (09:52)
--- NOTE | 2021-11-14 11:15 | PT.IIE ---
Current Diagnoses Intussusception (11/13/21) Surgery Performed Operation Date: 11/13/21 14:00 Actual Procedures p Exploratory Laparotomy, small bowel resection - Oleg Walden MD Physical Therapy Inpatient Evaluation/Re-Eval M1 PT/OT-IP Prior Functional Status Start: 11/14/21 13:01 Freq: NEEDED Status: Active Protocol: Document 11/14/21 11:15 AB (Rec: 11/14/21 13:09 AB [id number]) Medical Review Prior Functional Status Medical History Reviewed Yes Communication able to make needs known Mobility and Gait pt stated that she is independent with all mobilities and ambulation without AD Social History Household Members spouse Living Arrangements House Number of Floors (Floors) One Floor Number of Stairs To Enter/Railing? 1 step to enter Home Environment High Toilet,Walk in Shower, Built-In Shower Seat Home Equipment Hand Held Shower,Grab Bars Near Toilet,Grab Bars In Shower Employment Status Retired M2 PT-IP Current Condition Start: 11/14/21 13:01 Freq: NEEDED Status: Active Protocol: Document 11/14/21 11:15 AB (Rec: 11/14/21 13:09 AB [id number]) Physical Therapy Current Condition Current Condition Evaluation Date 11/14/21 Treatment Diagnosis intussusseption s/p ex lap small bowel resection; difficulty in walking Onset Date 11/13/21 M3 PT-IP Subjective Start: 11/14/21 13:01 Freq: NEEDED Status: Active Protocol: Document 11/14/21 11:15 AB (Rec: 11/14/21 13:09 AB [id number]) Subjective Physical Therapy Visit Type Type Initial Evaluation Visit Start Time 11:15 Visit Stop Time 11:30 Total Visit Minutes 15 Number of PERMACULTURE CONTRACTOR Visits 0 Physical Therapy Visit Comments Patient Comments agreed to do PT Therapy Pain Assessment Pain When Pain Assessed At Rest Pain Present Pain Present Pain Reported Location Epigastrium Intensity 2 M4 PT-IP Mobility and Gait Start: 11/14/21 13:01 Freq: NEEDED Status: Active Protocol: Document 11/14/21 11:15 AB (Rec: 11/14/21 13:09 AB [id number]) PT-Bed Mobility Assessment Rolling Type of Rolling Log Rolling Level of Assist Independent Supine to Sit Supine to Sit Independent Sit to Supine Sit to Supine Independent PT-Transfer Assessment Sit to and From Stand Sit to and from Stand Independent Equipment Transfer Assistive Device None Orthotic/Prosthetic Devices or Brace: No Comments Mobility Comments pt educated on abdominal precautions and log roll bed mobility. completed log roll bed mobility mod I. ambulated in room without AD without AD mod I but with decrease pace. completed up/down step stool without AD SBA. pt agreed that no PT intervention indicated. pt stated that she will be walking around the hospital with her spouse later . pt without any other concerns. Gait Assessment Gait Gait Assistance Required: Independent Distance (Feet) 30 Able to Maintain Weight Bearing Status Yes During Gait Assistive Devices Assistive Device None Orthotic/Prosthetic Devices or Brace: No Factors Limiting Gait Function Factors Limiting Gait Function Decreased Activity Tolerance Stair Climbing Assessment Evaluation Level of Assist On Stairs Standby Assistance Devices Stair Climbing Assistive Devices None Technique/Endurance Stair Climbing Direction Ascend and Descend Stair Climbing Technique Step to Step Number of Steps Climbed 1 Query Text: PT-Balance Assessment Sitting Balance and Reactions Static Sitting Balance Ability Normal Dynamic Sitting Balance Ability Normal Standing Balance and Reactions Static Standing Balance Ability Good Dynamic Standing Balance Ability Good Device Used without AD M5 PT-IP Objective Assessments Start: 11/14/21 13:01 Freq: NEEDED Status: Active Protocol: Document 11/14/21 11:15 AB (Rec: 11/14/21 13:09 AB [id number]) Orientation Orientation/Cognition Level of Alertness Alert Orientation Name,Place,Situation Language Function Ability No Deficits Noted Safety Awareness Understands Safety Issues Memory Description No Deficits Noted Gross Range of Motion Lower Extremity ROM Assessment Within Functional Limits Strength Lower Extremity Strength Assessment Within Functional Limits Coordination Assessment Gross Coordination Gross Coordination WNL Sensation Assessment Sensation Gross Sensation WNL Muscle Tone Muscle Tone WNL Yes M6 PT-IP Treatment Start: 11/14/21 13:01 Freq: NEEDED Status: Active Protocol: Document 11/14/21 11:15 AB (Rec: 11/14/21 13:09 AB [id number]) Physical Therapy Treatment Education Education Provided Precautions,Post-Op Packet, Safety M7 PT-IP Assessment and Plan Start: 11/14/21 13:01 Freq: NEEDED Status: Active Protocol: Document 11/14/21 11:15 AB (Rec: 11/14/21 13:09 AB [id number]) PT Summary Assessment and Plan Potential Rehabilitation Potential Good Status of Condition at Evaluation Stable Summary Impairments Pain,Strength Assessment Summary PT eval completed. pt is modified independent in her room without AD. agreed to ambulate as tolerate while here in the hospital and will ask for assistance when needed . pt plans to go home and spouse will assist her. No further PT intervention indicated at this time. Frequency of Treatment Frequency Of Treatment Discharge Discharge Recommendations PT Discharge Recommendations Home Transportation Needs at Discharge Private Vehicle
[2021-11-14] MEDS: ESCITALOPRAM 10 MG TABLET PO (15:10)
--- NOTE | 2021-11-14 16:52 | CM.DANOTE ---
DCP/Assessment: Reviewed chart. Patient is a 65yr old female admitted [facility] with [facility]. PCP is Erin Neri. Primary payor is 1)Marybel GONZALEZ. Met with patient and spouse/Luis at bedside explained CM/SW role. Patient reports that she is completely I in all ADL's. Patient hopes to d/c home within the next 24-48hrs. At this time there are no anticipated d/c planning needs. P: Home with supportive spouse when stable. Patient advancing diet today. KJS Discharge Planning/Care Management Advanced directive, confirm from FAMILY Start: 11/13/21 13:25 Freq: Q24H Status: Active Protocol: Document 11/13/21 13:03 TJB (Rec: 11/13/21 15:01 TJB [id number]) Advance Directive, confirm on record Time 15:01 Person contacted pt Copy received No Advanced directive available on record No CM Discharge Assessment Start: 11/14/21 15:54 Freq: Status: Active Protocol: Document 11/14/21 15:54 KJS (Rec: 11/14/21 16:27 KJS [id number]) Discharge Planning Assessment Assigned Book Agent MADELINE Shay Contact Information Luis Neumann (spouse) ph# [phone] Advance Directives? Yes Advance Directives on File No History Provided By Patient,Family Member,Medical Record Prior Living Arrangements House Household Members spouse Type of transporation used prior to Drives own vehicle admit Independent with ADL's Yes Is patient alert and oriented? Yes Caregiver for Another No Barriers to Discharge No Discharge Plan Home Transportation Arrangement Family to provide transport. Referrals Initiated Other Additional Comment None needed at time of initial assessment. Whiteboard Updated in Patient Room with Yes name and ext. # of Book Agent Review Status In Process Next Review Type Continued Stay Review Document 11/14/21 16:52 KJS (Rec: 11/14/21 16:52 KJS [id number]) Discharge Planning Assessment Assigned Book Agent MADELINE Shay Contact Information Luis Neumann (spouse) ph# [phone] Advance Directives? Yes Advance Directives on File No History Provided By Patient,Family Member,Medical Record Prior Living Arrangements House Household Members spouse Type of transporation used prior to Drives own vehicle admit Independent with ADL's Yes Is patient alert and oriented? Yes Caregiver for Another No Barriers to Discharge No Discharge Plan Home Transportation Arrangement Family to provide transport. Referrals Initiated Other Additional Comment None needed at time of initial assessment. Whiteboard Updated in Patient Room with Yes name and ext. # of Book Agent Review Status In Process Next Review Type Continued Stay Review
[2021-11-14] MEDS: SODIUM CHLORIDE 0.9% FLUSH 10 ML IV (21:30)
[2021-11-15 02:00] VITALS: O2SAT 97
--- NOTE | 2021-11-15 02:02 | PC.NURSE ---
Pt. requested not to be awaken for anything, she just wanted to sleep
[2021-11-15 04:00] VITALS: BP 99/62; PULSE 72; RESP 18; TEMP 36.7; O2SAT 97
[2021-11-15 04:28] LABS: Add Manual Diff / Slide Review NO; Basophils Absolute Auto 0 /uL (0-100); Basophils Percent Auto 0.4 % (0-2); Eosinophils Absolute Auto 0 /uL (0-450); Eosinophils Percent Auto 0.3 % (2-4); Hematocrit 31.3 % (36-46); Hemoglobin 10.8 g/dL (12.0-16.0); Lymphocytes Absolute Auto 3000 /uL (1100-4500); Lymphocytes Percent Auto 35.5 % (25-40); Mean Corpuscular HGB Conc 34.5 % (30-36); Mean Corpuscular Volume 89.8 fL (80-100); Monocytes Absolute Auto 500 /uL (0-900); Monocytes Percent Auto 6.4 % (3-14); Neutrophils Absolute Auto 4800 /uL (1500-7000); Neutrophils Percent Auto 57.4 % (50-75); Platelet Count 200 X10^3/uL (150-400); Red Blood Cell Count 3.48 X10^6/uL (4.0-5.2); Red Cell Distribution Width 13.7 % (11.6-14.8); White Blood Cell Count 8.4 X10^3/uL (4.5-11.0)
[2021-11-15 04:45] LABS: BUN Creatinine Ratio 22.1 (6-22); Blood Urea Nitrogen 15 mg/dL (7-17); Calcium 8.9 mg/dL (8.4-10.2); Carbon Dioxide 30 mmol/L (22-32); Chloride 104 mmol/L (98-107); Estimated Glomerular Filt Rate > 60 mL/min (>60); Glucose 106 mg/dL (80-110); HEMOLYSIS < 15 (0-50); Potassium 3.7 mmol/L (3.4-5.1); Sodium 137 mmol/L (137-145)
[2021-11-15 06:00] VITALS: O2SAT 98
[2021-11-15 08:00] VITALS: BP 98/58; PULSE 89; RESP 18; TEMP 36.7; O2SAT 96
--- NOTE | 2021-11-15 08:04 | PC.NURSE ---
PT SITTING UP ON WINDOW SEAT WITH GUEST- ASSESSMENT NOT COMPLETED AT THIS TIME THEY WISHED TO REMAIN UNDISTURBED- PT REPORTS HAVING BM AND THIS RN INFORMED HER OF DIET ADVANCE AND PROBABLE D/C BEFORE NOON PER DR FORBES STATED
[2021-11-15] MEDS: KETOROLAC 30 MG/ML VIAL IV (09:15)
[2021-11-15] MEDS: ACETAMINOPHEN 325 MG TABLET 650 MG PO (09:16)
[2021-11-15] MEDS: TRIAMTERENE/HCTZ 37.5/25 CAPSULE 1 CAP PO (09:17)
[2021-11-15 09:19] VITALS: RESP 18; O2SAT 98
[2021-11-15] MEDS: SODIUM CHLORIDE 0.9% FLUSH 10 ML IV (09:22)
--- NOTE | 2021-11-15 09:35 | P.DS_ITS ---
History of Present Illness History of Present Illness Date Patient Seen: 11/15/21 Time Patient Seen: 09:35 Chief complaint: Abdominal Pain Narrative: 65-year-old healthy woman no prior abdominal surgery presents with small-bowel intussusception. Developed severe abdominal pain today associated with nausea bloating radiation to the back. Admission afebrile hypertensive WBC 8. CT abdomen pelvis demonstrates a mid bowel intussusception with bowel wall edema no free air. Discharge Providers Provider Date of admission: 11/13/21 12:18 Discharge Date: 11/15/21 Primary care physician: Erin Neri PA-C Consults: 11/14/21 09:13 Consult to Physical Therapy Evaluate & Treat Comment: Physician Instructions: Evaluate and Treat Discharge provider: Oleg Forbes MD Summary Hospital Course Discharge Diagnosis: Intusseption Hospital Course: She underwent an exploratory laparotomy found to have a small bowel intusseption with ischemic necrosis. A small bowel resection was performed there was a soft 1-2 cm mass within the bowel wall. Her postoperative course was unremarkable. At discharge she is tolerating a diet, ambulatory without leukocytosis or fever, pain is well controlled with po meds. Time Spent with Patient Time spent: Less than 30 minutes Exam Vital Signs (past 8 hours): - 11/15/21 02:00 11/15/21 04:00 11/15/21 06:00 Temperature 98.0 F Pulse Rate 72 Respiratory Rate 18 Blood Pressure 99/62 Pulse Oximetry 97 97 98 11/15/21 08:00 11/15/21 09:19 Temperature 98.1 F Pulse Rate 89 Respiratory Rate 18 18 Blood Pressure 98/58 L Pulse Oximetry 96 98 Oxygen Delivery Method Room Air Oxygen Flow Rate 0 Narrative Exam Narrative: Gen-Adult woman alert and oriented Abdomen-Soft, non tender, incision midline CDI Objective Labs Result Diagrams: 11/15/21 04:15 11/15/21 04:15 Labs: Laboratory Results - last 24 hr 11/15/21 11/15/21 04:15 04:15 WBC 8.4 RBC 3.48 L Hgb 10.8 L Hct 31.3 L MCV 89.8 MCH 31.0 MCHC 34.5 RDW 13.7 Plt Count 200 Neut % (Auto) 57.4 D Lymph % (Auto) 35.5 D [place] % (Auto) 6.4 Eos % (Auto) 0.3 L Baso % (Auto) 0.4 Neut # (Auto) 4800 Lymph # (Auto) 3000 [place] # (Auto) 500 Eos # (Auto) 0 Baso # (Auto) 0 Sodium 137 Potassium 3.7 Chloride 104 Carbon Dioxide 30 BUN 15 Creatinine 0.68 Estimated GFR > 60 BUN/Creatinine Ratio 22.1 H Glucose 106 Calcium 8.9 PFSH Social History household members: spouse Smoking Status: Never smoker alcohol intake: current Discharge Plan Discharge Plan Patient Disposition: Home Provider Discharge Comment: -No driving while taking narcotics -Walking for exercise -No lifting >20 lbs x 4 weeks -OK to shower but do not submerge wounds in water until follow up Discharge orders & Medications Prescriptions: New docusate sodium [Colace] 100 mg capsule 100 mg PO BID Qty: 30 0RF ibuprofen 200 mg tablet 400 mg PO Q6H Qty: 60 0RF oxycodone 5 mg tablet 5 mg PO Q6H PRN (Reason: pain) Qty: 20 0RF acetaminophen [Tylenol] 325 mg capsule 650 mg PO QID PRN (Reason: pain) Qty: 60 0RF alprazolam 0.5 mg tablet 0.5 mg PO TID PRN (Reason: anxiety) Qty: 20 0RF Continued alprazolam 0.5 mg tablet 0.5 mg PO DAILY PRN (Reason: Anxiety) 0RF Label Comments: TAKE 1/2 TABLET BY MOUTH EVERY DAY NEEDED atorvastatin 20 mg tablet 20 mg PO DAILY 0RF Label Comments: TAKE 1 TABLET BY MOUTH DAILY escitalopram oxalate 10 mg tablet 10 mg PO DAILY 0RF Label Comments: TAKE 1 TABLET BY MOUTH DAILY triamterene-hydrochlorothiazid 37.5-25 mg tablet 1 tab PO DAILY 0RF Label Comments: TAKE 1 TABLET BY MOUTH EVERY MORNING Follow up/Referrals: Oleg Forbes MD [Physician] - 11/30/21 10:30 am (APPT:11/30 CHECK IN @ 10:[address] FORBES ) Diet/Activity/Treatments Diet: Diet as Tolerated Skin/Wound/Dressing Care Report to your healthcare provider any signs of infection, such as:: chills, fever, increased pain, unusual drainage and unusual redness Visit Report/Discharge Packet Instructions: DI for Small Bowel Resection, DI for Constipation Discharge Data Primary Care Provider: Erin Neri VTE Deep Vein Thrombosis/Pulmonary Embolism Present on Admission: No
[2021-11-15 10:00] VITALS: O2SAT 96
--- NOTE | 2021-11-15 10:27 | PC.NURSE ---
PT DOING WELL AND PREPPED FOR DISCHARGE - POST OP APPT RELAYED TO PT AND ANSWERED ALL QUESTIONS TO HER AND HER SPOUSE IV DISCINTINUED AND DISCHARGED AT THIS TIME
== END 2021-11-15 10:40 | disposition home or self-care (01) | DRG 329 ==
LOC: ED 12:18 → AC 12:28
PROVIDERS: Admitting Provider Surgery; Emergency Provider Emergency Medicine; PCP Physician Assistant Medical; Referring Provider Emergency Medicine; Visit Provider Surgery
PROC: 0DB80ZZ Excision of Small Intestine, Open Approach (ICD-10-PCS; CPT 49000; principal; 2021-11-13 14:00)
DX: K56.1 Intussusception (principal); K55.011 Focal (segmental) acute (reversible) ischemia of small intestine; I10 Essential (primary) hypertension; E78.5 Hyperlipidemia, unspecified; Z20.822 Contact with and (suspected) exposure to COVID-19
CPT/HCPCS: 0241U; 36415; 44120; 74022; 74177; 80048; 80053; 81003; 81015; 82550; 83690; 84484; 85025; 87077; 87086; 87147; 93005; 93010; 94760; 96374; 96375; 96376; 97161; 99223; 99284; J1100; J1170; J1885; J2060; J2250; J2270; J2405; J2543; J2704; J3010; Q9967

== ENCOUNTER → 2021-11-30 14:20 | Outpatient (CLI) | payer OTHER, SELFPAY ==
[2021-11-13 12:42] VITALS: BMI 25.0
== END ==
PROVIDERS: PCP Internal Medicine; Referring Provider Internal Medicine; Visit Provider Internal Medicine
DX: Z78.0 Asymptomatic menopausal state (principal); M81.0 Age-related osteoporosis without current pathological fracture
CPT/HCPCS: 77080

== ENCOUNTER → 2023-10-04 07:06 | Outpatient (CLI) | payer MEDICARE, OTHER, SELFPAY ==
[2021-11-13 12:42] VITALS: BMI 25.0
--- NOTE | 2023-10-04 | DI.US.S_ITS ---
PROCEDURE: US SOFT TISSUE HEAD AND NECK INDICATIONS: RIGHT SUPRACLAVICULAR LUMP TECHNIQUE: Real-time scanning was performed of the neck region of interest, with image documentation. COMPARISON: None. FINDINGS: No mass lesion, architectural distortion or fluid collection at the area of concern. IMPRESSION: Unremarkable. Dictated by: Kimi Ruano M.D. on 10/04/2023 at 10:13 Approved by: Kimi Ruano M.D. on 10/04/2023 at 10:13
== END ==
PROVIDERS: PCP Physician Assistant; Referring Provider Physician Assistant; Visit Provider Physician Assistant
DX: R22.1 Localized swelling, mass and lump, neck (principal)
CPT/HCPCS: 76536

== ENCOUNTER → 2023-10-16 12:20 | Outpatient (CLI) | payer MEDICARE, OTHER, SELFPAY ==
[2021-11-13 12:42] VITALS: BMI 25.0
--- NOTE | 2023-10-16 12:21 | DI.CT.S_ITS ---
PROCEDURE: CT SOFT TISSUE NECK WO/W CON INDICATIONS: PARATHYROID NODULES TECHNIQUE: Before and after the administration of intravenous contrast, 2.0 mm axial sections acquired through the neck and down to the tirso. Additional 2.0 mm coronal and sagittal reformats were generated of the contrast enhanced images. For radiation dose reduction, the following was used: automated exposure control. COMPARISON: None. FINDINGS: Skull Base: The visualized intracranial contents, skull, and orbits are unremarkable. Visualized paranasal sinuses are clear. Pharynx and Larynx: The nasopharyngeal airway is patent and midline. Parapharyngeal soft tissues including palatine tonsils and base of the tongue are normal. Retropharyngeal space unremarkable. Normal appearance of the false and true vocal cords. Muscles and Fascial Planes: Right supraclavicular palpable abnormality was marked on the skin, corresponds with focal unencapsulated supraclavicular fat. No mass lesion or organized lipoma Lymph Nodes: No evidence of adenopathy. Vasculature: Unremarkable. Submandibular and Parotid Glands: Normal in size and attenuation. No evidence of parathyroid nodule Thyroid: Unremarkable. No enlarged or calcified nodules. Bones: No acute fracture. No osteolytic or blastic lesion is evident. Normal bone mineralization. Degenerative disc disease and arthropathy in the cervical spine associated with moderate central stenosis C5-6 Lung Apices: The visualized lung apices are clear. IMPRESSION: 1. Right supraclavicular palpable abnormalities corresponds with asymmetric unencapsulated supraclavicular fat. No mass lesion. 2. No evidence of parathyroid nodule or mass lesion. If there is persistent clinical concern for parathyroid adenoma, consider nuclear medicine scanning. 3. Cervical degenerative disc disease and arthropathy associated with moderate central stenosis C5-6 Approved by: Isaac Linton M.D. on 10/16/2023 at 16:09
[2023-10-16 12:52] LABS: Estimated Glomerular Filt Rate > 60 mL/min (>60)
== END ==
LOC: CT 12:21
PROVIDERS: Radiology Diagnostic Radiology; PCP Physician Assistant; Referring Provider Physician Assistant; Visit Provider Physician Assistant
DX: R22.1 Localized swelling, mass and lump, neck (principal); M50.30 Other cervical disc degeneration, unspecified cervical region; M47.812 Spondylosis without myelopathy or radiculopathy, cervical region; M48.02 Spinal stenosis, cervical region
CPT/HCPCS: 36415; 70492; 82565; Q9967

== ENCOUNTER → 2024-01-27 12:07 | Outpatient (CLI) | payer MEDICARE, OTHER, SELFPAY ==
[2021-11-13 12:42] VITALS: BMI 25.0
--- NOTE | 2024-01-27 12:09 | DI.RAD.S_ITS ---
PROCEDURE: XR DEXA AXIAL SKELETON INDICATIONS: OSTEOPOROSIS COMPARISON: [facility], [place], XR DEXA AXIAL SKELETON, 11/30/2021, 14:35. FINDINGS: Lumbar Spine: L1, L4. Bone mineral density 0.764 g/cm2, T score -2.5 Left Hip: Bone mineral density 0.963 g/cm2, T score 0.2. Left Femoral Neck: Bone mineral density 0.877 g/cm2, T score 0.3. Right Hip: Bone mineral density 0.914 g/cm2, T score -0.2. Right Femoral Neck: Bone mineral density 0.775 g/cm2, T score -0.7. Fracture Risk Calculation (when applicable): 10-year fracture risk of a major osteoporotic fracture 7.4% and of a hip fracture 0.6%. (T score greater or equal to -1.0 to: NORMAL) (T score from -1.1 to -2.4: OSTEOPENIA) (T score less than or equal to -2.5: OSTEOPOROSIS) IMPRESSION: Osteoporosis. Follow-up guidelines as follows: Osteoporosis: Consider a repeat DEXA and Vertebral Fracture Assessment (VFA) exam in 2 years or sooner if medically necessary, to reassess this patient's status. Osteopenia: Consider a repeat DEXA in 2-3 years to reassess this patient's status, or if there is a new clinical indication. Normal: Consider a repeat DEXA in 5 years or sooner, or if there is a new clinical indication. All treatment decisions require clinical judgment and consideration of individual patient factors, including patient preferences, comorbidities, previous drug use, risk factors not captured in the FRAX model (e.g., frailty, falls, vitamin D deficiency, increased bone turnover, interval significant decline in bone density ) and possible under- or over-estimation of fracture risk by FRAX. In addition, the NOF Guide recommends that FDA-approved medical therapies be considered in postmenopausal women and men age >= 50 years with a: * Hip or vertebral (clinical or morphometric) fracture * T-score of <=-2.5 at the spine or hip * Ten-year fracture probability by FRAX of >= 3% for hip fracture or >=20% for major osteoporotic fracture. People with diagnosed cases of osteoporosis or at high risk for fracture should have regular bone mineral density tests. For patients eligible for Medicare, routine testing is allowed once every 2 years. The testing frequency can be increased to one year for patients who have rapidly progressing disease, those who are receiving or discontinuing medical therapy to restore bone mass, or have additional risk factors. Dictated by: Alex Ramirez M.D. on 01/27/2024 at 23:05 Approved by: Alex Ramirez M.D. on 01/27/2024 at 23:08
== END ==
LOC: RAD 12:09
PROVIDERS: PCP Physician Assistant Medical; Referring Provider Physician Assistant; Visit Provider Physician Assistant
DX: M81.0 Age-related osteoporosis without current pathological fracture (principal)
CPT/HCPCS: 77080